=== PATIENT | female | born 1990 | race Caucasian/White ===

== ENCOUNTER 2020-11-18 09:44 | Emergency (ER) | payer OTHER, SELFPAY ==
[2020-11-18 10:01] VITALS: BP 109/73; PULSE 62; RESP 16; TEMP 36.1; O2SAT 98; BMI 27.7
[2020-11-18] MEDS: Tetracaine HCl/PF 0.5% Oph Sol 4 ML DROPS 3 DROP EYE-LEFT (10:44)
[2020-11-18] MEDS: Fluorescein Sodium STRIP 1 STRIP EYE-LEFT (10:44)
--- NOTE | 2020-11-18 11:29 | ED.EYEPROB ---
HPI - Eye Problem General Chief complaint: Eye Problems <SHAHEEN Alfonso Last Filed: 11/18/20 11:55> Stated complaint: EYE ISSUE <SHAHEEN Alfonso Last Filed: 11/18/20 11:55> Time Seen by Provider: 11/18/20 10:09 <SHAHEEN Alfonso Last Filed: 11/18/20 11:55> Source: patient <SHAHEEN Alfonso Last Filed: 11/18/20 11:55> Mode of arrival: ambulatory <SHAHEEN Alfonso Last Filed: 11/18/20 11:55> History of Present Illness HPI Narrative: 30-year-old female with no significant past medical history presenting to the ED complaining of left eye irritation since yesterday. Reports feels like there is something in her eye, with redness. Denies wearing glasses or contacts, known or visible foreign body, denies trauma, visual change/loss/double vision, nausea/vomiting, headache <SHAHEEN Alfonso Last Filed: 11/18/20 11:55> MD chief complaint: eye pain and eye redness <SHAHEEN Alfonso Last Filed: 11/18/20 11:55> Related Data Home medications: Previous Rx's Medication Instructions Recorded polymyxin B sulf-trimethoprim 1 drp OPHTHALMIC-LEFT Q4H 7 Days 11/18/20 [Polytrim] #10 ml <SHAHEEN Alfonso Last Filed: 11/18/20 11:55> Allergies/adverse reactions: Allergies Allergy/AdvReac Type Severity Reaction Status Date / Time No Known Allergies Allergy Unverified 03/20/20 19:49 [No Known Allergies*] <SHAHEEN Alfonso Last Filed: 11/18/20 11:55> Review of Systems Review of Systems: Constitutional: No Fever, No Chills ENT/Mouth: No Ear Pain, No Sinus Pain, No sore throat Eyes: + Eye Pain, No Swelling, + Redness, ? Foreign Body, No Discharge, No Vision Changes Gastrointestinal: No Nausea, No Vomiting Skin: No Skin Lesions, No rash Neuro: No Headache <SHAHEEN Alfonso Last Filed: 11/18/20 11:55> Yes all other systems are reviewed and are negative <SHAHEEN Alfonso Last Filed: 11/18/20 11:55> [facility] Past Medical History Attestation statement: The following information was validated with the patient. <SHAHEEN Alfonso - Last Filed: 11/18/20 11:55> Medical History: Medical History (Updated 11/19/20 @ 00:01 by Padilla Hernandez) Seasonal allergies <SHAHEEN Alfonso - Last Filed: 11/18/20 11:55> Surgical History: Surgical History (Updated 11/18/20 @ 10:03 by Smita Kern) No pertinent past surgical history <SHAHEEN Alfonso - Last Filed: 11/18/20 11:55> Social History Social History: Social History Advance Directives: No Advance Directives Information Provided: No Patient : No <SHAHEEN Alfonso - Last Filed: 11/18/20 11:55> Physical Exam Vital Signs: Vital Signs: Last Vital Signs Temp 97.0 F 11/18/20 10:01 Pulse 62 11/18/20 10:01 Resp 16 11/18/20 10:01 BP 109/73 11/18/20 10:01 Pulse Ox 98 11/18/20 10:01 Body Mass Index 27.7 <SHAHEEN Alfonso - Last Filed: 11/18/20 11:55> Vital Signs: Last Vital Signs Temp 97.0 F 11/18/20 10:01 Pulse 62 11/18/20 10:01 Resp 16 11/18/20 10:01 BP 109/73 11/18/20 10:01 Pulse Ox 98 11/18/20 10:01 Body Mass Index 27.7 <Vishnu Alonzo MD - Last Filed: 12/12/20 15:15> Const: General: cooperative, healthy appearing, comfortable and no acute distress <SHAHEEN Alfonso - Last Filed: 11/18/20 11:55> Orientation/consciousness: patient oriented x3 <SHAHEEN Alfonso - Last Filed: 11/18/20 11:55> Limitations: no limitations <SHAHEEN Alfonso - Last Filed: 11/18/20 11:55> HENMT: Head: Yes normal to inspection and Yes atraumatic <SHAHEEN Alfonso - Last Filed: 11/18/20 11:55> Ears: hearing grossly normal bilaterally and external ears normal <Malena Barrera NH - Last Filed: 11/18/20 11:55> General nose exam: Normal external nose present <Malena Barrera NH - Last Filed: 11/18/20 11:55> Face and sinus: Yes normal facial exam <Malena Barrera NH - Last Filed: 11/18/20 11:55> Eyes: General: appearance normal, both eyes and all related structures <Malena Barrera NH - Last Filed: 11/18/20 11:55> Visual [place]: normal visual [place] by confrontation <Malena Barrera NH - Last Filed: 11/18/20 11:55> Alignment and Position: alignment normal <Malena Barrera NH - Last Filed: 11/18/20 11:55> Periorbital: periorbital findings normal <Malena Barrera NH - Last Filed: 11/18/20 11:55> Eyelids: Yes eyelids normal <Malena Barrera NH - Last Filed: 11/18/20 11:55> Conjunctivae: conjunctival abnormal left conjunctival injection diffuse; without discharge and without subconjunctival hemmorhages <Malena Barrera NH - Last Filed: 11/18/20 11:55> Corneas: fluorescein used (left eye without uptake. No appreciable abrasion) <Malena Barrera NH - Last Filed: 11/18/20 11:55> Pupils: Equal, round and reactive pupils present <Malena Barrera NH - Last Filed: 11/18/20 11:55> EOM: EOMs intact bilaterally <Malena Barrera NH - Last Filed: 11/18/20 11:55> Direct Ophthalmoscopy: normal light reflex and no photophobia <Malena Barrera NH - Last Filed: 11/18/20 11:55> Neck: Neck: Yes normal visual inspection, Yes no lymphadenopathy and Yes no meningeal signs <Malena Barrera NH - Last Filed: 11/18/20 11:55> Resp: Effort & Inspection: normal respiratory effort <Malena Barrera NH - Last Filed: 11/18/20 11:55> Cardio: Rate: regular rate <Malena Barrera NH - Last Filed: 11/18/20 11:55> Skin: Rashes: no rashes <SHAHEEN Alfonso - Last Filed: 11/18/20 11:55> Wounds: no wounds <SHAHEEN Alfonso - Last Filed: 11/18/20 11:55> Neuro: General: patient oriented x3 and no meningeal signs <SHAHEEN Alfonso - Last Filed: 11/18/20 11:55> Cranial nerves: Yes Equal, round and reactive pupils present <SHAHEEN Alfonso Last Filed: 11/18/20 11:55> Gait exam (Neuro): Normal gait present <SHAHEEN Alfonso - Last Filed: 11/18/20 11:55> Extrem: General: Yes normal to inspection <SHAHEEN Alfonso - Last Filed: 11/18/20 11:55> Course Course Course Narrative: I have reviewed the chart <Vishnu Alonzo MD - Last Filed: 12/12/20 15:15> MDM - Eye Problem MDM Narrative Medical decision making narrative: On exam VS, NAD/well-appearing, visual acuity 20/70 right eye, 20/50 left eye, conjunctival injection/irritation noted in left eye, no regional trauma, no appreciable fluorescein uptake or corneal abrasion, however pain relieved on tetracaine administration. Will DC patient with Polytrim drops and close Ophthalmology follow-up, worrisome signs and symptoms discussed, she verbalized understanding feel safe for discharge <SHAHEEN Alfonso Last Filed: 11/18/20 11:55> Discharge Plan Discharge Clinical Impression: Irritation of left eye <SHAHEEN Alfonso Last Filed: 11/18/20 11:55> Patient Disposition: Home, Self-Care <SHAHEEN Alfonso Last Filed: 11/18/20 11:55> Instructions: Corneal Abrasion (ED) <SHAHEEN Alfonso - Last Filed: 11/18/20 11:55> Additional Instructions: Polytrim is an antibiotic eyedrop, use as prescribed It is important that you follow up with an mushroom grower in the next few days If her symptoms persist or worsen, you develop any visual loss/change/blurry vision, fever or chills, nausea/vomiting please return to the ED <SHAHEEN Alfonso - Last Filed: 11/18/20 11:55> Prescriptions: New polymyxin B sulf-trimethoprim [Polytrim] 10,000 unit- 1 mg/mL drops 1 drp ophthalmic-Left Q4H 7 Days Qty: 10 RF: 0 <SHAHEEN Alfonso - Last Filed: 11/18/20 11:55> Referrals: Heladio Summers [Physician] - 2 days <SHAHEEN Alfonso - Last Filed: 11/18/20 11:55> Interventions: ED Discharge Assessment Last Done: 11/18/20 11:33 <SHAHEEN Alfonso - Last Filed: 11/18/20 11:55> Discharge Date/Time: 11/18/20 11:34 <SHAHEEN Alfonso - Last Filed: 11/18/20 11:55>
== END 2020-11-18 11:34 | disposition home or self-care (01) ==
PROVIDERS: Emergency Provider Emergency Medicine
DX: H57.12 Ocular pain, left eye (principal); H57.89 Other specified disorders of eye and adnexa
CPT/HCPCS: 99283

== ENCOUNTER 2021-11-30 23:37 | Emergency (ER) | payer OTHER, SELFPAY ==
--- NOTE | ~2021-11-30 | CT_ITS ---
EXAMINATION: CT ABDOMEN AND PELVIS WITHOUT CONTRAST CLINICAL INFORMATION: Left lower quadrant/flank pain COMPARISON: None TECHNIQUE: Multidetector volumetric imaging was performed from the superior aspect of the liver through the pubic symphysis. Sagittal and coronal reformatted images were obtained on the technologist's workstation. This CT examination was performed using dose optimization techniques as appropriate, variously including the following: *Automated exposure control *Adjustment of mA and/or kV according to patient size (this includes techniques or standardized protocols for targeted exams where dose is matched to indication/reason for exam; i.e. extremities or head) *Use of iterative reconstruction technique DLP: 667 mGy-cm FINDINGS: LUNG BASES: There is a 3 mm peripheral nodule in the right middle lobe on image 5/101, statistically likely benign in the absence of clinical risk factors. LIVER, GALLBLADDER, AND BILIARY TREE: The liver is normal in size, shape, and attenuation. Tiny right hepatic lobe cyst is suspected on image 14/01. No biliary ductal dilatation is present. The gallbladder is unremarkable with no evidence of radiopaque gallstones, gallbladder wall thickening, or obvious pericholecystic inflammatory changes. PANCREAS: Unremarkable. SPLEEN: Unremarkable. ADRENAL GLANDS: Unremarkable. KIDNEYS AND URETERS: The kidneys are normal in size, shape, and attenuation. No hydronephrosis, hydroureter, or calculi seen. No perinephric stranding. BLADDER: Unremarkable. GASTROINTESTINAL TRACT: No evidence of bowel obstruction or significant wall thickening. The appendix is unremarkable. No free air is seen. ABDOMINAL WALL: No significant hernia is appreciated. LYMPH NODES: Normal. VASCULAR: Unremarkable. PELVIC VISCERA: IUD appears malpositioned in the uterus, oriented transversely. There is trace pelvic free fluid. OSSEOUS STRUCTURES: Unremarkable. CT/CT abdomen pelvis wo con IMPRESSION: 1. No hydronephrosis or obstructing calculus identified. 2. Trace nonspecific pelvic free fluid, which may be physiologic. 3. IUD appears malpositioned in the uterus; clinical correlation recommended. 4. Right middle lobe 3 mm lung nodule, statistically likely benign in the absence of clinical risk factors.
[2021-11-30 23:42] VITALS: BP 128/76; PULSE 88; O2SAT 99
[2021-12-01 01:18] VITALS: BP 113/68; PULSE 78; RESP 16; TEMP 36.7; O2SAT 99; BMI 26.6
[2021-12-01 02:21] LABS: Appearance Urine CLEAR; Color Urine YELLOW; Glucose Urine UA NEG (NEG); Leukocyte Esterase Urine NEG (NEG); Nitrite Urine NEG (NEG); Urine Blood NEG (NEG); Urine Ketones 15 MG/DL (NEG); Urine Protein TRACE MG/DL (NEG-TRACE)
[2021-12-01 02:23] LABS: UPreg QC Valid YES; Urine Pregnancy NEGATIVE (NEGATIVE)
[2021-12-01 02:41] LABS: MANUAL DIFF FLAG NO
[2021-12-01 02:45] LABS: Basophils Percent Auto 0.2 % (0-2); Eosinophils Absolute Auto 0.1 X10*3/uL (0.0-0.4); Eosinophils Percent Auto 0.6 % (0-4); Hematocrit 36.6 % (37.0-47.0); Hemoglobin 12.3 g/dl (12.0-16.0); Imm Gran Abs Auto 0.01 X10*3/uL (0.00-0.03); Imm Gran Pct Auto 0.1 % (0.0-0.4); Lymphocytes Absolute Auto 0.7 X10*3/uL (1.2-4.9); Lymphocytes Percent Auto 7.9 % (20-40); Mean Corpuscular HGB Conc 33.6 g/dl (31.0-35.0); Mean Corpuscular Hemoglobin 28.3 pg (27.0-33.0); Mean Corpuscular Volume 84.1 fL (80.0-98.0); Mean Platelet Volume 10.4 fL (9.4-12.3); Monocytes Absolute Auto 0.5 X10*3/uL (0.1-1.2); Monocytes Percent Auto 5.4 % (2-11); Neutrophils Absolute Auto 7.5 x10*3/uL (2.0-8.3); Neutrophils Percent Auto 85.8 % (45-73); Platelet Count 198 X10*3/uL (160-400); Red Blood Count 4.35 X10*6/uL (4.20-5.50); Red Cell Distribution Width 12.9 % (11.0-16.0); White Blood Count 8.8 X10*3/uL (4.8-10.8)
[2021-12-01 02:59] LABS: Alanine Aminotransferase 15 U/L (0-31); Albumin Level 4.1 g/dL (3.5-5.0); Alkaline Phosphatase 61 U/L (39-117); Anion Gap 10 (12-20); Aspartate Amino Transferase 11 U/L (5-31); Bilirubin Total 0.7 mg/dL (0.0-1.0); Blood Urea Nitrogen 12 mg/dL (9-16); Calcium 9.1 mg/dL (8.4-10.2); Carbon Dioxide 25 mmol/L (22-29); Chloride 106 mmol/L (96-108); Creatinine Clr Calc Pharmacy 148.1; Estimated Glomerular Filt Rate > 60; Glucose Random 113 mg/dL (60-115); Potassium 3.7 mmol/L (3.3-5.1); Sodium 137 mmol/L (135-145); Total Protein 6.6 g/dL (6.5-8.0)
--- NOTE | 2021-12-01 03:14 | PC.NURSE ---
Pt returned from [place] last week. Pt reports that her cousin has diarrhea, close contact with him. Abdominal pain began 2 days ago, pt has been drinking water tonight without vomiting.
[2021-12-01] MEDS: Ondansetron ODT 4 MG TAB.RAPDIS TRANSLINGU (04:05)
[2021-12-01 04:26] LABS: COVID-19 Test Negative (Negative); IDNOW Serial# 16C4AD1C; Influenza A Negative (Negative); Influenza B2 Negative (Negative)
--- NOTE | 2021-12-01 04:54 | ED.ABDPAIN ---
HPI - Abdominal Pain General Chief Complaint: Abdominal Pain Stated Complaint: N/V Time Seen by Provider: 12/01/21 00:01 Source: patient Mode of arrival: ambulatory History of Present Illness HPI narrative: 31-year-old female without significant past medical history presents with complaints of left lower quadrant/flank pain that started yesterday and then worsened over time associated with nausea and vomiting but denies any diarrhea or contaminated food. Patient also denies any fever chills. Patient states her last menstrual period was 3 years ago as she has an IUD. Related Data Previous Rx's Medication Instructions Recorded polymyxin B sulfate 10,000 1 drp OPHTHALMIC-LEFT Q4H 7 Days 11/18/20 unit-trimethoprim 1 mg/mL eye #10 ml drops (Polytrim) ondansetron 4 mg disintegrating 4 mg PO Q6H PRN #10 tab 12/01/21 tablet Allergies Allergy/AdvReac Type Severity Reaction Status Date / Time No Known Allergies Allergy Unverified 03/20/20 19:49 [No Known Allergies*] Review of Systems Review of Systems Pertinent positives and negatives as stated in HPI 10 point review of systems is otherwise negative. PMFSH Past Medical History Source: nursing notes reviewed Medical History Seasonal allergies Surgical History No pertinent past surgical history Social History Social History Advance Directives: No Advance Directives Information Provided: Yes Physical Exam ED Vital Signs: Vital Signs - 24 hr 12/01/21 01:18 12/01/21 05:29 Temperature 98.0 F 98.7 F Pulse Rate 78 76 Respiratory Rate 16 16 Blood Pressure 113/68 94/54 L Pulse Oximetry 99 98 BMI result Body Mass Index 26.6 VITAL SIGNS: Reviewed. GENERAL: Well developed, well nourished, in no acute distress. HEAD: Normocephalic/atraumatic EYES: PERRLA, EOMI EARS: Ext canals without abnormality OROPHARYNX: no oral lesions noted, posterior pharynx clear LUNGS: Normal breath sounds. No adventitious sounds or accessory muscle use. SpO2<99> CARDIOVASCULAR: Regular rate and rhythm without noted murmurs ABDOMEN: Soft, tenderness noted in the left lower quadrant on deep palpation without rebound, non-distended with bowel sounds. MUSCULOSKELETAL: No tenderness, deformities, or effusions noted on gross inspection. EXTREMITIES: No cyanosis, clubbing or edema. SKIN: Inspection of the skin reveals no rashes NEUROLOGIC: Alert and oriented x 4. Strength and sensation to light touch were grossly intact x 4. Course Course Course Narrative: 31-year-old female with history and clinical presentation after review of all investigations most suggestive of possible renal colic as there is no evidence in history or investigations to suggest appendicitis, diverticulitis, food poisoning, ectopic , gastroenteritis, UTI. There is the possibility of a ruptured ovarian cyst. Review of all investigations negative for acute findings other than malpositioned IUD which the patient is aware of. Patient states she is currently asymptomatic and is no longer having any pain. I discussed with her the possibility that this is a viral gastroenteritis and she wishes to be discharged to home with follow-up with her primary care provider. She is otherwise MDM - Abdominal Pain Lab Data Result diagrams: 12/01/21 02:37 12/01/21 02:37 Labs: Lab Results 12/01/21 12/01/21 12/01/21 Range/Units 02:11 02:11 02:37 WBC 8.8 (4.8-10.8) X10*3/uL RBC 4.35 (4.20-5.50) X10*6/uL Hgb 12.3 (12.0-16.0) g/dl Hct 36.6 L (37.0-47.0) % MCV 84.1 (80.0-98.0) fL MCH 28.3 (27.0-33.0) pg MCHC 33.6 (31.0-35.0) g/dl RDW 12.9 (11.0-16.0) % Plt Count 198 (160-400) X10*3/uL MPV 10.4 (9.4-12.3) fL Immature Gran % (Auto) 0.1 (0.0-0.4) % Neut % (Auto) 85.8 H (45-73) % Lymph % (Auto) 7.9 L (20-40) % [place] % (Auto) 5.4 (2-11) % Eos % (Auto) 0.6 (0-4) % Baso % (Auto) 0.2 (0-2) % Lymph # (Auto) 0.7 L (1.2-4.9) X10*3/uL [place] # (Auto) 0.5 (0.1-1.2) X10*3/uL Eos # (Auto) 0.1 (0.0-0.4) X10*3/uL Baso # (Auto) 0.0 (0.0-0.2) X10*3/uL Abs Immat Gran (auto) 0.01 (0.00-0.03) X10*3/uL Absolute Neuts (auto) 7.5 (2.0-8.3) x10*3/uL Absolute Nucleated RBC 0.000 (0.0-0.012) X10*3/uL Nucleated RBC % (auto) 0.0 (0.0-0.2) /100WBC Sodium (135-145) mmol/L Potassium (3.3-5.1) mmol/L Chloride (96-108) mmol/L Carbon Dioxide (22-29) mmol/L Anion Gap (12-20) BUN (9-16) mg/dL Creatinine (0.5-1.4) mg/dL Estim Creat Clear Calc Estimated GFR Random Glucose (60-115) mg/dL Calcium (8.4-10.2) mg/dL Total Bilirubin (0.0-1.0) mg/dL AST (5-31) U/L ALT (0-31) U/L Alkaline Phosphatase (39-117) U/L Total Protein (6.5-8.0) g/dL Albumin (3.5-5.0) g/dL Urine Color YELLOW Urine Appearance CLEAR Urine pH 8.0 (5.0-8.0) Ur Specific [place] 1.010 (1.005-1.025) Urine Protein TRACE (NEG-TRACE) MG/DL Urine Glucose (UA) NEG (NEG) MG/DL Urine Ketones 15 (NEG) MG/DL Urine Blood NEG (NEG) Urine Nitrite NEG (NEG) Ur Leukocyte Esterase NEG (NEG) Urine Test NEGATIVE (NEGATIVE) COVID-19 (CARMITA) (Negative) COVID-19 Clin Com Influenza Type A (BEATRIZ) (Negative) Influenza Type B (BEATRIZ) (Negative) Influenza A & B Note 12/01/21 12/01/21 12/01/21 Range/Units 02:37 04:03 04:03 WBC (4.8-10.8) X10*3/uL RBC (4.20-5.50) X10*6/uL Hgb (12.0-16.0) g/dl Hct (37.0-47.0) % MCV (80.0-98.0) fL MCH (27.0-33.0) pg MCHC (31.0-35.0) g/dl RDW (11.0-16.0) % Plt Count (160-400) X10*3/uL MPV (9.4-12.3) fL Immature Gran % (Auto) (0.0-0.4) % Neut % (Auto) (45-73) % Lymph % (Auto) (20-40) % [place] % (Auto) (2-11) % Eos % (Auto) (0-4) % Baso % (Auto) (0-2) % Lymph # (Auto) (1.2-4.9) X10*3/uL [place] # (Auto) (0.1-1.2) X10*3/uL Eos # (Auto) (0.0-0.4) X10*3/uL Baso # (Auto) (0.0-0.2) X10*3/uL Abs Immat Gran (auto) (0.00-0.03) X10*3/uL Absolute Neuts (auto) (2.0-8.3) x10*3/uL Absolute Nucleated RBC (0.0-0.012) X10*3/uL Nucleated RBC % (auto) (0.0-0.2) /100WBC Sodium 137 (135-145) mmol/L Potassium 3.7 (3.3-5.1) mmol/L Chloride 106 (96-108) mmol/L Carbon Dioxide 25 (22-29) mmol/L Anion Gap 10 L (12-20) BUN 12 (9-16) mg/dL Creatinine 0.60 (0.5-1.4) mg/dL Estim Creat Clear Calc 148.1 Estimated GFR > 60 Random Glucose 113 (60-115) mg/dL Calcium 9.1 (8.4-10.2) mg/dL Total Bilirubin 0.7 (0.0-1.0) mg/dL AST 11 (5-31) U/L ALT 15 (0-31) U/L Alkaline Phosphatase 61 (39-117) U/L Total Protein 6.6 (6.5-8.0) g/dL Albumin 4.1 (3.5-5.0) g/dL Urine Color Urine Appearance Urine pH (5.0-8.0) Ur Specific [place] (1.005-1.025) Urine Protein (NEG-TRACE) MG/DL Urine Glucose (UA) (NEG) MG/DL Urine Ketones (NEG) MG/DL Urine Blood (NEG) Urine Nitrite (NEG) Ur Leukocyte Esterase (NEG) Urine Test (NEGATIVE) COVID-19 (CARMITA) Negative (Negative) COVID-19 Clin Com See Note Influenza Type A (BEATRIZ) Negative (Negative) Influenza Type B (BEATRIZ) Negative (Negative) Influenza A & B Note See Note Discharge Plan Discharge Clinical Impression: Gastroenteritis Patient Disposition: Home, Self-Care Instructions: Gastroenteritis (ED) Additional Instructions: 1. Increase water intake and recommend [id number] Tylenol/ibuprofen as needed for pain control. 2. You have been given a prescription for antinausea medication. 3. Follow-up with your primary care provider in the next 1-2 days for re-evaluation. Return to the ER for worsening symptoms. Prescriptions: New ondansetron 4 mg tablet,disintegrating 4 mg PO Q6H PRN (Reason: nausea and vomiting) Qty: 10 0RF No Action polymyxin B sulf-trimethoprim [Polytrim] 10,000 unit- 1 mg/mL drops 1 drp ophthalmic-Left Q4H 7 Days Qty: 10 0RF Rx Instructions: while awake; do not exceed 6 doses in 24 hours Referrals: Russel Gentile MD [Primary Care Provider] - Stand Alone Forms: Work/School Release
[2021-12-01 05:29] VITALS: BP 94/54; PULSE 76; RESP 16; TEMP 37.1; O2SAT 98
== END 2021-12-01 07:11 | disposition home or self-care (01) ==
PROVIDERS: Emergency Provider Student in an Organized Health Care Education/Training Program; PCP Internal Medicine
DX: K52.9 Noninfective gastroenteritis and colitis, unspecified (principal); R10.32 Left lower quadrant pain; Z20.822 Contact with and (suspected) exposure to COVID-19; R11.2 Nausea with vomiting, unspecified
CPT/HCPCS: 36415; 74176; 80053; 81003; 81025; 85025; 87502; 87635; 99283; 99284

== ENCOUNTER 2023-06-24 11:48 | Emergency (ER) | payer MEDICAID, SELFPAY ==
[2023-06-24 11:50] VITALS: BP 119/73; PULSE 66; RESP 18; TEMP 36.4; O2SAT 100; BMI 31.3
--- NOTE | 2023-06-24 11:53 | ED_ITS ---
HPI - General Adult General Chief complaint: Dental/Oral Stated complaint: nerve issues Time Seen by Provider: 06/24/23 11:59 Source: patient Mode of arrival: ambulatory Limitations: no limitations History of Present Illness HPI narrative: Patient is a 32 year old assigned female at with no reported medical history presenting to the emergency department today with right sided face pain. Patient states that the pain comes out from the base of her ear and shoots up or down her face over the last few months. Patient states that it feels like a zap that goes very quickly and then resolves. Patient states that nothing makes it better or makes it worse. Patient states that she went to a dentist and there is nothing wrong with her mouth. Patient denies any dizziness, lightheadedness, abdominal pain, nausea, vomiting, fever, chills, blurry vision, double vision, loss of vision, chest pain, difficulty breathing, shortness of breath, back pain, night sweats, pain with urination, increased urinary frequency, increased urinary urgency, blood in her urine or stool, syncope or a near syncopal episode, recent trauma or falls, bowel incontinence, bladder incontinence, bowel retention, bladder retention, or any other complaints at this time. Onset (ago): month(s) Location: face and right Severity: mild Quality: burning Pain Consistency: intermittent and now resolved Relieving factors: none Exacerbating factors: none Associated symptoms: denies other symptoms Treatments prior to arrival: none Related Data Previous Rx's Medication Instructions Recorded polymyxin B sulfate 10,000 1 drp ophthalmic-Left Q4H 7 days 11/18/20 unit-trimethoprim 1 mg/mL eye #10 mL drops (Polytrim) ondansetron 4 mg disintegrating 4 mg PO Q6H PRN nausea and 12/01/21 tablet vomiting #10 tabs naproxen 500 mg tablet 500 mg PO BID 7 days #14 tabs 06/24/23 prednisone 20 mg tablet 20 mg PO DAILY 7 days #7 tabs 06/24/23 Allergies Allergy/AdvReac Type Severity Reaction Status Date / Time No Known Allergies Allergy Unverified 03/20/20 19:49 [No Known Allergies*] Review of Systems Constitutional: Constitutional: Reports no additional constitutional complaints, Denies chills, Denies fever(s) and Denies night sweats Eyes: Eyes: Reports no additional eye complaints, Denies blurry vision, Denies change in vision, Denies diplopia, Denies eye discharge, Denies loss of vision and Denies eye pain ENT: Denies dizziness Comments: right sided face pain Cardiovascular: Cardiovascular: Reports no additional cardiovascular complaints, Denies chest pain, Denies lightheadedness, Denies Loss of Consciousness and Denies dyspnea Respiratory: Respiratory: Reports no additional respiratory complaints and Denies dyspnea Gastrointestinal: Gastrointestinal: Reports no additional gastrointestinal complaints, Denies abdominal pain, Denies melena, Denies hematochezia, Denies change in bowel habits and Denies change in stool character Genitourinary: Genitourinary: Denies hematuria, Denies urinary frequency, Denies dysuria, Denies urinary incontinence, Denies urinary hesitancy and Denies urinary urgency Musculoskeletal: Musculoskeletal: Reports no additional musculoskeletal complaints, Denies numbness and Denies tingling Neurologic: Denies dizziness, Denies loss of vision, Denies numbness and Denies tingling Psychiatric: Psychiatric: Reports no additional psychiatric complaints Endocrine: Endocrine: Reports no additional endocrine complaints Hematologic/Lymphatic: Hematologic/Lymphatic: Reports no additional hematologic/lymphatic complaints Allergic/Immunologic: Allergic/Immunologic: Reports no additional allergic/immunologic complaints PMFSH Past Medical History Attestation statement: The following information was validated with the patient. Source: old records reviewed and nursing notes reviewed Medical History Seasonal allergies Surgical History No pertinent past surgical history Physical Exam ED Vital Signs: Vital Signs - 24 hr 06/24/23 11:50 Temperature 97.5 F Pulse Rate 66 Respiratory Rate 18 Blood Pressure 119/73 Pulse Oximetry 100 Oxygen Delivery Method Room Air BMI result Body Mass Index 31.3 Const General: cooperative, no acute distress, alert and awake Nutritional Appearance: well nourished Orientation/consciousness: patient oriented x3 Limitations: no limitations HENMT Head: Yes normal to inspection and Yes atraumatic Ears: hearing grossly normal bilaterally and external ears normal General nose exam: Normal external nose present, no nasal discharge noted and no epistaxis Face and sinus: Yes normal facial exam, No abrasion and No laceration Mouth: Normal oral and palatal mucosa present, no drooling and no muffled voice Eyes General: appearance normal, both eyes and all related structures Periorbital: periorbital findings normal Eyelids: Yes eyelids normal Conjunctivae: conjunctivae normal Pupils: Equal, round and reactive pupils present EOM: EOMs intact bilaterally Neck Neck: Yes normal visual inspection, Yes full ROM and Yes no lymphadenopathy Chest Chest palpation & inspection: normal inspection of the chest Resp Effort & Inspection: normal respiratory effort and able to speak in complete sentences GI Inspection: Yes normal to inspection Neuro General: patient oriented x3 and moves all extremities Cranial nerves: Yes Equal, round and reactive pupils present Cognition (Neuro): normal cognition Motor exam (neuro): 5/5 motor strength present throughout Sensory Exam: Normal double simultaneous stimulation for sensation Coordination: [id number] test normal Extrem General: Yes normal to inspection, Yes full ROM and Yes capillary refill normal Psych Appearance: grossly normal Mental Status: mental status grossly normal Affect: normal affect Attitude: cooperative Thought process: Normal thought process present Thought content: Normal thought content present Insight: Good insight present (Psych) Medical Decision Making Medical Decision Making MDM Narrative: Patient is a 32 year old assigned female at with no reported medical history presenting to the emergency department today with intermittent, sharp, right sided facial pain. Patient's physical exam was unremarkable. Patient's current clinical presentation is most consistent with trigeminal neuralgia vs. paresthesias. I explained my physical exam findings to the patient. I answered all questions asked by the patient. I stressed the importance of the patient taking her medication as prescribed. I stressed the importance of the patient following up with her primary care provider and a neurologist. I stressed the importance of the patient returning to the emergency department immediately if her symptoms were to worsen or if she were to develop any dizziness, shortness of breath, difficulty breathing, chest pain, blurry vision, loss of vision, nausea, vomiting, abdominal pain, fever, chills, back pain, or any other complaints. Patient verbalized agreement and understanding with this treatment plan and discharge. Differential Diagnosis Differential Diagnoses: The differential diagnosis associated with the presentation includes Trigeminal neuralgia Paresthesias Prescription Management I considered prescription management with: Pain Medication (patient prescribed pain medication) Discharge Plan Discharge Clinical Impression: Nerve pain Patient Disposition: Home, Self-Care Instructions: Paresthesia (ED) Additional Instructions: Follow up with your primary care provider and a neurologist. Return to the emergency department immediately if your symptoms worsen or if you develop any dizziness, shortness of breath, difficulty breathing, chest pain, blurry vision, loss of vision, nausea, vomiting, abdominal pain, fever, chills, back pain, or any other complaints. Prescriptions: New prednisone 20 mg tablet 20 mg PO DAILY 7 Days Qty: 7 0RF naproxen 500 mg tablet 500 mg PO BID 7 Days Qty: 14 0RF No Action polymyxin B sulf-trimethoprim [Polytrim] 10,000 unit- 1 mg/mL drops 1 drp ophthalmic-Left Q4H 7 Days Qty: 10 0RF Rx Instructions: while awake; do not exceed 6 doses in 24 hours ondansetron 4 mg tablet,disintegrating 4 mg PO Q6H PRN (Reason: nausea and vomiting) Qty: 10 0RF Ref[place]: [facility] [place] [facility] [place] (Call to establish and follow up with a primary care provider. If you already have a primary care provider, please follow up with them.) [facility] [place] [facility] Group] (Call to establish and follow up w ith a primary care provider. If you already have a primary care provider, please follow up with them.) [facility] [place] [facility] Group] (Call to establish and follow up with a primary care provider. If you already have a primary care provider, please follow up with them.) [facility] [place] [facility] [Provider Group] (Call to establish and follow up with a neurologist.) Interventions: ED Discharge Assessment Last Done: 06/24/23 12:02 Print Language: Surinamese
== END 2023-06-24 12:16 | disposition home or self-care (01) ==
LOC: HO.ED 12:07
PROVIDERS: Emergency Provider Emergency Medicine Emergency Medical Services
DX: G62.9 Polyneuropathy, unspecified (principal); R20.2 Paresthesia of skin; Z79.899 Other long term (current) drug therapy
CPT/HCPCS: 99282; 99283

== ENCOUNTER 2023-07-03 14:38 | Emergency (ER) | payer OTHER, SELFPAY ==
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
[2023-07-03 18:28] VITALS: BP 134/82; PULSE 73; RESP 16; TEMP 36.6; O2SAT 97; BMI 31.5
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
[2023-07-03] MEDS: Cyclobenzaprine HCl 5 MG TABLET PO (20:12)
== END 2023-07-03 20:44 | disposition home or self-care (01) ==
PROVIDERS: Emergency Provider Emergency Medicine
DX: Z04.1 Encounter for examination and observation following transport accident (principal); M25.552 Pain in left hip; M54.50 Low back pain, unspecified; M54.2 Cervicalgia; F41.9 Anxiety disorder, unspecified
CPT/HCPCS: 73502; 99283

== ENCOUNTER 2023-08-10 11:55 | Emergency (ER) | payer MEDICAID, SELFPAY ==
--- NOTE | ~2023-08-10 | CT_ITS ---
EXAMINATION: CT HEAD WITHOUT CONTRAST CLINICAL INFORMATION: Right-sided facial pain. COMPARISON: None. TECHNIQUE: Contiguous axial imaging was performed from the skullbase to vertex without intravenous administration of contrast. This CT examination was performed using dose optimization techniques as appropriate, variously including the following: *Automated exposure control *Adjustment of mA and/or kV according to patient size (this includes techniques or standardized protocols for targeted exams where dose is matched to indication/reason for exam; i.e. extremities or head) *Use of iterative reconstruction technique DLP: 665 mGy-cm. FINDINGS: There is no evidence of acute intracranial hemorrhage or territorial infarction. No abnormal mass effect or midline shift is seen. Crow to white matter differentiation is well preserved. No extra-axial fluid collections are identified. Nonspecific mild superior cerebellar volume loss noted. The ventricles are normal in size. There is no abnormal attenuation within the brain parenchyma. The osseous structures and soft tissues are normal. The mastoid air cells and visualized portions of the paranasal sinuses are well aerated. CT/CT head/brain wo IV con IMPRESSION: No acute intracranial pathology.
[2023-08-10 12:10] VITALS: BP 126/71; PULSE 68; RESP 18; TEMP 36.6; O2SAT 98; BMI 30.7
--- NOTE | 2023-08-10 12:17 | ED_ITS ---
HPI - Neuro Symptoms/Deficit General Chief Complaint: Neuro Symptoms/Deficit Stated Complaint: Pain in face Time Seen by Provider: 08/10/23 14:46 Source: patient Mode of arrival: ambulatory Limitations: no limitations History of Present Illness HPI Narrative: 32 yo female no PMH no precipitating events here with c/o R sided paroxysmal sharp pain since February no fevers keeps getting NSAIDs and flexeril no relief will see neuro at end of month for first time Onset (ago): month(s) Location: right face History of same: Yes Severity: severe Quality: intermittent Relieving factors: none Exacerbating factors: none Context: sudden onset On Anticoagulants: No Associated symptoms: denies other symptoms Treatments Prior to Arrival: other medication Related Data Previous Rx's Medication Instructions Recorded polymyxin B sulfate 10,000 1 drp ophthalmic-Left Q4H 7 days 11/18/20 unit-trimethoprim 1 mg/mL eye #10 mL drops (Polytrim) ondansetron 4 mg disintegrating 4 mg PO Q6H PRN nausea and 12/01/21 tablet vomiting #10 tabs naproxen 500 mg tablet 500 mg PO BID 7 days #14 tabs 06/24/23 prednisone 20 mg tablet 20 mg PO DAILY 7 days #7 tabs 06/24/23 cyclobenzaprine 5 mg tablet 5 mg PO TID PRN muscle spasm 7 07/03/23 days #21 tabs hydroxyzine HCl 10 mg tablet 10 mg PO TID PRN anxiety #10 tabs 07/03/23 gabapentin 100 mg capsule 100 mg PO BID #80 caps 08/10/23 Allergies Allergy/AdvReac Type Severity Reaction Status Date / Time No Known Allergies Allergy Verified 08/10/23 12:10 [No Known Allergies*] Review of Systems 2 Review of Systems: Constitutional : No Fever, No Chills, No Fatigue ENT/Mouth : No sore throat, No Rhinorrhea Eyes: No Eye Pain, No Swelling, No Redness Cardiovascular : No Chest Pain, No SOB, No Dyspnea on Exertion Respiratory : No Cough, No Sputum Gastrointestinal : No Nausea, No Vomiting, No Diarrhea, No abdominal Pain Genitourinary : No Dysuria, No Urinary Frequency, No Hematuria, Musculoskeletal : No joint pain, No Myalgias, No Joint Swelling Skin : No Skin Lesions, No rash Neuro : No Weakness, No Numbness, No Dizziness, positive Headache Psych : No Anxiety/Panic, No Depression Heme/Lymph: No Bruising, No Bleeding,No Lymphadenopathy Endocrine : No Polyuria, No Polydipsia All other systems reviewed and are negative [facility] Past Medical History Attestation statement: The following information was validated with the patient. Source: old records reviewed Medical History Seasonal allergies Surgical History No pertinent past surgical history Social History Social History (Updated 08/10/23 @ 14:59 by Stefany Hillman DO) Patient Tobacco Use Status: Never used Tobacco Physical Exam 2 Vital Signs: Vital Signs: Last Vital Signs Temp 97.8 F 08/10/23 12:10 Pulse 68 08/10/23 12:10 Resp 18 08/10/23 12:10 BP 126/71 08/10/23 12:10 Pulse Ox 98 08/10/23 12:10 O2 Del Method Room Air 08/10/23 12:10 BMI result Body Mass Index 30.7 Appearance: Alert. Oriented X3. No acute distress. Eyes: Pupils equal, round and reactive to light. ENT: Pharynx normal. Neck: Normal inspection. Neck supple. CVS: Normal heart rate and rhythm. Pulses normal. Respiratory: No respiratory distress. Breath sounds normal. Abdomen: Soft and nontender. Skin: Skin warm and dry. Normal skin color. Normal skin turgor. Extremities: No lower extremity edema. No calf ttp Neuro: Oriented X 3. No motor deficit. No sensory deficit. CN2-12 intact normal gait Course Course Course Narrative: RME:?32 yo female here w/ worsening right sided facial pain and blurred vision x 1 wk. Evaluated for this 3 times without head scans. Has appointment with neurologist on the . Has been taking cyclobenzaprine and naproxen without relief of pain. Reports worsening pain to right side of face, blurred vision. No scalp tenderness or palpable temporal artery. Labs, head CT ordered Full HPI, ROS and PE to be performed by the primary ED provider. Medical Decision Making Medical Decision Making MDM Narrative: 32 yo female intermittent sharp pains R side of face no trauma no dental work no swelling signs of infection keeps getting flexeril and NSAIDs without relief inflammatory markers are negative CT head no mass will try gabapenint and follow up with neurology Differential Diagnosis Differential Diagnoses: The differential diagnosis associated with the presentation includes mass, Trigeminal neuralgia Lab Data MDM Lab Attestation statement: I reviewed the patient's lab results. 08/10/23 12:36 08/10/23 12:36 Labs: Lab Results 08/10/23 Range/Units 12:36 WBC 7.4 (4.8-10.8) X10*3/uL RBC 4.64 (4.20-5.50) X10*6/uL Hgb 12.8 (12.0-16.0) g/dl Hct 37.2 (37.0-47.0) % MCV 80.2 (80.0-98.0) fL MCH 27.6 (27.0-33.0) pg MCHC 34.4 (31.0-35.0) g/dl RDW 13.8 (11.0-16.0) % Plt Count 247 (160-400) X10*3/uL MPV 10.1 (9.4-12.3) fL Immature Gran % (Auto) 0.4 (0.0-0.4) % Neut % (Auto) 60.9 (45-73) % Lymph % (Auto) 30.0 (20-40) % [place] % (Auto) 6.8 (2-11) % Eos % (Auto) 1.5 (0-4) % Baso % (Auto) 0.4 (0-2) % Lymph # (Auto) 2.2 (1.2-4.9) X10*3/uL [place] # (Auto) 0.5 (0.1-1.2) X10*3/uL Eos # (Auto) 0.1 (0.0-0.4) X10*3/uL Baso # (Auto) 0.0 (0.0-0.2) X10*3/uL Abs Immat Gran (auto) 0.03 (0.00-0.03) X10*3/uL Absolute Neuts (auto) 4.5 (2.0-8.3) x10*3/uL Absolute Nucleated RBC 0.000 (0.0-0.012) X10*3/uL Nucleated RBC % (auto) 0.0 (0.0-0.2) /100WBC ESR 10 (0-20) MM/HR Sodium 141 (135-145) mmol/L Potassium 4.2 (3.3-5.1) mmol/L Chloride 108 (96-108) mmol/L Carbon Dioxide 26 (22-29) mmol/L Anion Gap 11 L (12-20) BUN 14 (9-16) mg/dL Creatinine 0.67 (0.5-1.4) mg/dL Estim Creat Clear Calc 140.5 Estimated GFR > 60 Random Glucose 92 (60-115) mg/dL Calcium 9.5 (8.4-10.2) mg/dL Magnesium 2.1 (1.6-2.6) mg/dL C-Reactive Protein 0.31 (< or = 0.50) mg/dL Independent Interpretation I performed an independent interpretation of an: CT Scan (normal ) Radiology Impression Discussion of test interpretation with radiology: I have reviewed the radiologist's reading. Prescription Management I considered prescription management with: Pain Medication Discharge Plan Discharge Clinical Impression: Trigeminal neuralgia of right side of face Patient Disposition: Home, Self-Care Instructions: Trigeminal Neuralgia (ED) Additional Instructions: you can still take the motrin and tylenol but no longer take the cyclobenzaprine follow up with a neurologist as planned Prescriptions: New gabapentin 100 mg capsule 100 mg PO BID Qty: 80 0RF Rx Instructions: 100mg twice a day for first week if no improvement increase to 100mg three times a day No Action polymyxin B sulf-trimethoprim [Polytrim] 10,000 unit- 1 mg/mL drops 1 drp ophthalmic-Left Q4H 7 Days Qty: 10 0RF Rx Instructions: while awake; do not exceed 6 doses in 24 hours ondansetron 4 mg tablet,disintegrating 4 mg PO Q6H PRN (Reason: nausea and vomiting) Qty: 10 0RF prednisone 20 mg tablet 20 mg PO DAILY 7 Days Qty: 7 0RF naproxen 500 mg tablet 500 mg PO BID 7 Days Qty: 14 0RF cyclobenzaprine 5 mg tablet 5 mg PO TID PRN (Reason: muscle spasm) 7 Days Qty: 21 0RF hydroxyzine HCl 10 mg tablet 10 mg PO TID PRN (Reason: anxiety) Qty: 10 0RF
[2023-08-10 12:40] LABS: MANUAL DIFF FLAG NO
[2023-08-10 12:41] LABS: Basophils Percent Auto 0.4 % (0-2); Eosinophils Absolute Auto 0.1 X10*3/uL (0.0-0.4); Eosinophils Percent Auto 1.5 % (0-4); Hematocrit 37.2 % (37.0-47.0); Hemoglobin 12.8 g/dl (12.0-16.0); Imm Gran Abs Auto 0.03 X10*3/uL (0.00-0.03); Imm Gran Pct Auto 0.4 % (0.0-0.4); Lymphocytes Absolute Auto 2.2 X10*3/uL (1.2-4.9); Mean Corpuscular HGB Conc 34.4 g/dl (31.0-35.0); Mean Corpuscular Hemoglobin 27.6 pg (27.0-33.0); Mean Corpuscular Volume 80.2 fL (80.0-98.0); Mean Platelet Volume 10.1 fL (9.4-12.3); Monocytes Absolute Auto 0.5 X10*3/uL (0.1-1.2); Monocytes Percent Auto 6.8 % (2-11); Neutrophils Absolute Auto 4.5 x10*3/uL (2.0-8.3); Neutrophils Percent Auto 60.9 % (45-73); Platelet Count 247 X10*3/uL (160-400); Red Blood Count 4.64 X10*6/uL (4.20-5.50); Red Cell Distribution Width 13.8 % (11.0-16.0); White Blood Count 7.4 X10*3/uL (4.8-10.8)
[2023-08-10 13:19] LABS: Anion Gap 11 (12-20); Blood Urea Nitrogen 14 mg/dL (9-16); C Reactive Protein 0.31 mg/dL (< or = 0.50); Calcium 9.5 mg/dL (8.4-10.2); Carbon Dioxide 26 mmol/L (22-29); Chloride 108 mmol/L (96-108); Creatinine Clr Calc Pharmacy 140.5; Erythrocyte Sedimentation Rate 10 MM/HR (0-20); Estimated Glomerular Filt Rate > 60; Glucose Random 92 mg/dL (60-115); Magnesium 2.1 mg/dL (1.6-2.6); Potassium 4.2 mmol/L (3.3-5.1); Sodium 141 mmol/L (135-145)
== END 2023-08-10 15:30 | disposition home or self-care (01) ==
LOC: HO.ED 15:29
PROVIDERS: Physician Assistant Medical; Emergency Provider Emergency Medicine
DX: G50.0 Trigeminal neuralgia (principal); R51.9 Headache, unspecified
CPT/HCPCS: 36415; 70450; 80048; 83735; 85025; 85652; 86140; 99282; 99284